=== PATIENT | male | born 1955 | race Caucasian/White ===

== ENCOUNTER 2017-10-25 11:21 | Inpatient (IN) ==
--- NOTE | 2017-10-25 11:28 | Emergency Department Note ---
Disposition Clinical Impression: Encephalomalacia, Hypertensive emergency, Enlarged lymph node CVA (cerebral vascular accident) Qualifiers: CVA mechanism: other Qualified Code(s): I63.8 - Other cerebral infarction Carotid stenosis Qualifiers: Laterality: left Qualified Code(s): I65.22 - Occlusion and stenosis of left carotid artery Disposition: Admitted As Inpatient Condition: Serious General Adult HPI - General Stated complaint: Poss Stroke Nursing Notes Reviewed: Yes Vital Signs Reviewed: Yes - History of Present Illness HPI Narrative: 62-year-old male presents emergency department with concern for stroke. [facility] has left-sided facial droop and left upper extremity weakness according to them. There is no known last known well at this time. Patient has history of brain hemorrhage. He has history of aneurysms. Patient reportedly had a systolic blood pressure in the 200s. Also, had a seizure for EMS came. Currently taking Keppra. - Related Data Home Medications Medication Instructions Recorded Confirmed Aspirin 325 mg PO DAILY PRN 10/25/17 10/25/17 Allergies Allergy/AdvReac Type Severity Reaction Status Date / Time No Known Allergies Allergy Verified 10/25/17 13:29 All systems ED: reviewed and negative except as stated. Review of Systems: As Per HPI Constitutional: Denies: fever Cardiovascular: Denies: chest pain Respiratory: Denies: dyspnea Gastrointestinal: Denies: abdominal pain, nausea, vomiting Genitourinary: Denies: urgency Musculoskeletal: Denies: back pain Neurological: Reports: weakness, other (Seizure). Denies: headache, numbness, paresthesias Physical Exam - Head Head exam: normocephalic - Eye Eye exam: Present: EOMI - ENT ENT exam: normal oropharynx - Neck Neck exam: Present: trachea midline - Chest Chest inspection: Present: symmetric chest wall rise - Respiratory Respiratory exam: Present: normal lung sounds bilaterally - Cardiovascular Cardiovascular exam: Present: regular rate, normal rhythm, normal heart sounds - Abdominal Exam Abdominal exam: Present: soft, Non-Tender. Absent: distention, guarding, rebound, rigidity - Extremities Exam Extremities exam: Present: normal capillary refill - Neurological Exam Neurological exam: Present: alert, other (Oriented to person, but not place or time. Left-sided facial droop, left upper extremity weakness 4 out of 5, left upper extremity drift slightly to the bed,) - Psychiatric Psychiatric exam: Present: normal affect, normal mood - Skin Skin exam: Present: warm, dry, intact Course Vital Signs Temperature 98.7 F 10/25/17 11:30 Pulse Rate 80 10/25/17 11:30 Respiratory Rate 16 10/25/17 11:30 Blood Pressure 199/104 10/25/17 11:30 O2 Sat by Pulse Oximetry 99 10/25/17 11:30 Temperature 97.4 F L 10/25/17 15:05 Pulse Rate 76 10/25/17 15:17 Respiratory Rate 20 10/25/17 15:17 Blood Pressure 218/100 10/25/17 15:17 O2 Sat by Pulse Oximetry 98 10/25/17 15:05 Oxygen Delivery Oxygen Delivery Nasal Cannula Medical Decision Making - MDM Narrative Medical decision making narrative: 62-year-old male presents emergency department with concern for stroke. Patient has no known last known well, history of brain bleed, history of aneurysm, and has improving symptoms at this time. Patient is precluded from TPA. Patient currently has NIH of 6. He has left-sided facial droop, left upper extremity weakness, abnormal finger to nose, pronator drift. We will obtain CT of the head. Plan for admission. Chest x-ray did not reveal any [address] revealed no intracranial hemorrhage, but extensive subacute to chronic appearing right frontal and chronic left parietal lobe infarcts with periventricular small vessel ischemic changes. Prominent mediastinal lymph nodes were also identified on CT. Recommendations were for CT of chest. These should be followed up on. Hemoglobin is 11.3. Creatinine is 1.28. Patient's urinalysis does not reveal any evidence of infection. Patient was given aspirin. I have consulted neurology. Dr. Elizabeth requested head CTA as well as neck CTA. This revealed moderate stenosis of the distal common carotid artery. Patient's systolic blood pressure was in the 200s. In the setting of stroke, so hypertensive emergency. Patient given 10 mg IV hydralazine. Patient admitted to the hospitalist for further evaluation and management for stroke and hypertensive emergency. Chest X-Ray 10/25/17 11:29 IMPRESSION: No acute cardiopulmonary disease D/ / David Wilkes MD / David Wilkes MD Interpreting Provider: David Wilkes MD Head CT 10/25/17 11:29 IMPRESSION: 1. No intracranial hemorrhage. No definite acute infarct. 2. Subacute to chronic appearing right frontal, and chronic left parietal lobe infarcts. 3. Extensive periventricular small vessel ischemic changes, which are most likely old. 4. Status post intracranial endovascular aneurysm repair. Results of this examination were verbally communicated to Dr. Tong at 12:46 p.m. on 10/25/2017. D/ / 10/25/2017 13:47:51 David Wilkes MD / asaf Interpreting Provider: David Wilkes MD Head CTA 10/25/17 13:05 IMPRESSION: 1. Sequelae of coil embolization in the region of the anterior communicating artery and left MCA bifurcation. 2. No cerebral aneurysm identified. 3. No major branch occlusion or significant stenosis identified within the [place]. 4. Moderate stenosis of the distal left common carotid artery. 5. Prominent mediastinal lymph nodes measuring up to 1.3 cm. This is a nonspecific finding. Consider CT of the chest with contrast to assess for further adenopathy. D/ / 10/25/2017 14:53:40 Ted Coppola MD / asaf Interpreting Provider: Ted Coppola MD Neck CTA 10/25/17 13:05 IMPRESSION: 1. Sequelae of coil embolization in the region of the anterior communicating artery and left MCA bifurcation. 2. No cerebral aneurysm identified. 3. No major branch occlusion or significant stenosis identified within the [place]. 4. Moderate stenosis of the distal left common carotid artery. 5. Prominent mediastinal lymph nodes measuring up to 1.3 cm. This is a nonspecific finding. Consider CT of the chest with contrast to assess for further adenopathy. D/ / 10/25/2017 14:53:40 Ted Coppola MD / asaf Interpreting Provider: Ted Coppola MD Vital Signs Temperature 98.7 F 10/25/17 11:30 Pulse Rate 80 10/25/17 11:30 Respiratory Rate 16 10/25/17 11:30 Blood Pressure 199/104 10/25/17 11:30 O2 Sat by Pulse Oximetry 99 10/25/17 11:30 Temperature 97.4 F L 10/25/17 15:05 Pulse Rate 76 10/25/17 15:17 Respiratory Rate 20 10/25/17 15:17 Blood Pressure 218/100 10/25/17 15:17 O2 Sat by Pulse Oximetry 98 10/25/17 15:05 Oxygen Delivery Oxygen Delivery Nasal Cannula - Lab Data Result diagrams: 10/25/17 12:00 10/25/17 11:59 Lab Results 10/25/17 10/25/17 10/25/17 Range/Units 11:59 12:00 12:00 WBC 8.5 (4.3-11.1) K/mcL RBC 3.43 L (4.19-5.50) M/mcL Hgb 11.3 L (12.9-16.9) g/dL Hct 32.6 L (37.5-50.1) % MCV 95.0 (83.0-100.0) fL MCH 32.9 (28.0-33.3) pg MCHC 34.7 (31.6-35.5) g/dL RDW 11.9 (11.5-14.5) % Plt Count 288 (140-400) K/mcL MPV 9.1 L (9.4-12.4) fL Immature Gran % 0.5 (0-4) % Seg Neutrophils % 54.2 % Lymphocytes % 24.1 % Monocytes % 15.2 % Eosinophils % 5.5 % Basophils % 0.5 % Neutrophils # 4.6 (1.6-8.9) K/mcL Lymphocytes # 2.1 (0.6-4.6) K/mcL Monocytes # 1.3 (0.0-1.3) K/mcL Eosinophils # 0.5 (0.0-0.6) K/mcL Basophils # 0.0 (0.0-0.2) K/mcL PT 10.6 (9.4-12.1) Seconds INR 0.9 APTT 33.1 (26.0-36.0) Seconds Sodium 131 L (136-145) mEq/L Potassium 5.1 (3.5-5.1) mEq/L Chloride 102 (98-107) mEq/L Carbon Dioxide 25 (23-29) mEq/L BUN 24 H (8-23) mg/dL Creatinine 1.28 (0.70-1.30) mg/dL Est GFR ( Amer) > 60 (> 60) Est GFR (Non-Af Amer) 57 L (> 60) BUN/Creatinine Ratio 19 (6-26) Glucose 96 (70-105) mg/dL Calculated Osmolality 276 L (280-300) Calcium 8.9 (8.6-10.3) mg/dL Troponin I < 0.03 (< 0.04) ng/mL Urine Color (Yellow) Urine Clarity (Clear) Urine pH (5.0-8.0) pH Units Ur Specific [place] (1.010-1.025) Urine Protein (Neg-Trace) mg/dL Urine Glucose (UA) (Normal) mg/dL Urine Ketones (Negative) mg/dL Urine Blood (Negative) Urine Nitrite (Negative) Urine Bilirubin (Negative) Urine Urobilinogen (Normal) mg/dL Ur Leukocyte Esterase (Negative) Urine Microscopic RBC (0-3) per hpf Urine Microscopic WBC (0-3) per hpf Ur Squamous Epith Cells (None-Few) per lpf Urine Bacteria (None-Few) per hpf Hyaline Casts (None-Few) per lpf Ur Culture Indicated? (NO) Ethyl Alcohol < 10 (Less than 10) mg/dL 10/25/17 Range/Units 13:05 WBC (4.3-11.1) K/mcL RBC (4.19-5.50) M/mcL Hgb (12.9-16.9) g/dL Hct (37.5-50.1) % MCV (83.0-100.0) fL MCH (28.0-33.3) pg MCHC (31.6-35.5) g/dL RDW (11.5-14.5) % Plt Count (140-400) K/mcL MPV (9.4-12.4) fL Immature Gran % (0-4) % Seg Neutrophils % % Lymphocytes % % Monocytes % % Eosinophils % % Basophils % % Neutrophils # (1.6-8.9) K/mcL Lymphocytes # (0.6-4.6) K/mcL Monocytes # (0.0-1.3) K/mcL Eosinophils # (0.0-0.6) K/mcL Basophils # (0.0-0.2) K/mcL PT (9.4-12.1) Seconds INR APTT (26.0-36.0) Seconds Sodium (136-145) mEq/L Potassium (3.5-5.1) mEq/L Chloride (98-107) mEq/L Carbon Dioxide (23-29) mEq/L BUN (8-23) mg/dL Creatinine (0.70-1.30) mg/dL Est GFR ( Amer) (> 60) Est GFR (Non-Af Amer) (> 60) BUN/Creatinine Ratio (6-26) Glucose (70-105) mg/dL Calculated Osmolality (280-300) Calcium (8.6-10.3) mg/dL Troponin I (< 0.04) ng/mL Urine Color Yellow (Yellow) Urine Clarity Clear (Clear) Urine pH 7.5 (5.0-8.0) pH Units Ur Specific [place] 1.010 (1.010-1.025) Urine Protein >=300 H (Neg-Trace) mg/dL Urine Glucose (UA) Normal (Normal) mg/dL Urine Ketones Negative (Negative) mg/dL Urine Blood Trace H (Negative) Urine Nitrite Negative (Negative) Urine Bilirubin Negative (Negative) Urine Urobilinogen Normal (Normal) mg/dL Ur Leukocyte Esterase Negative (Negative) Urine Microscopic RBC 0-3 (0-3) per hpf Urine Microscopic WBC 0-3 (0-3) per hpf Ur Squamous Epith Cells Many H (None-Few) per lpf Urine Bacteria None Seen (None-Few) per hpf Hyaline Casts None Seen (None-Few) per lpf Ur Culture Indicated? NO (NO) Ethyl Alcohol (Less than 10) mg/dL - EKG Data EKG #1 EKG attestation: Yes I reviewed and interpreted this EKG. EKG results narrative: 11:40 In trigger rate 75 bpm, [place] interval 182 ms, QRS duration 82 ms, QT 386, QTC 450 ms, normal axis. Sinus rhythm with a ventricular rate of 75 beats for minute. No ischemic ST changes on this EKG. NIH Stroke Scale - Level of Consciousness LOC: Alert - LOC Questions LOC Questions: Answers one correctly - LOC Commands LOC Commands: Performs both correctly - Best Gaze Best Gaze: Normal - Visual Visual: No visual loss - Facial Palsy Facial Palsy: Partial, total, or near-total paralysis of lower face - Motor Arms Motor Arm-Left: Drift, does NOT hit bed Motor Arm-Right: No drift for 10 seconds - Motor Legs Motor Leg-Left: No drift for 5 seconds Motor Leg-Right: No drift for 5 seconds - Limb Ataxia Limb Ataxia: Present in TWO limbs - Sensory Sensory: Normal - Best Language Best Language: No aphasia - Dysarthria Dysarthria: Normal - Extinction and Inattention Extinction and Inattention: Normal - NIHSS Total Score NIHSS Total Score: 6
--- NOTE | 2017-10-25 11:46 | Emergency Department Note ---
Disposition Clinical Impression: Hypertensive urgency, CVA (cerebral vascular accident), Encephalomalacia Disposition: Admitted As Inpatient Condition: Serious Forms: ED Satisfaction Letter General Adult HPI - General Chief complaint: ED Neuro Symptoms/Deficit Stated complaint: Poss Stroke Source: EMS Limitations: altered mental status - History of Present Illness Pain Scale: 0 - Related Data Allergies Allergy/AdvReac Type Severity Reaction Status Date / Time No Known Allergies Allergy Verified 10/25/17 11:30 Past Medical History - Past Medical History Medical history: Reports: hypertension Psychiatric history: Reports: other - Social History Smoking Status: Current some day smoker Alcohol use: Reports: occasionally Drug use: Reports: none Physical Exam - General Limitations: altered mental status General appearance: alert Course Vital Signs Temperature 98.7 F 10/25/17 11:30 Pulse Rate 80 10/25/17 11:30 Respiratory Rate 16 10/25/17 11:30 Blood Pressure 199/104 10/25/17 11:30 O2 Sat by Pulse Oximetry 99 10/25/17 11:30 Temperature 98.7 F 10/25/17 11:30 Pulse Rate 80 10/25/17 11:30 Respiratory Rate 16 10/25/17 11:30 Blood Pressure 199/104 10/25/17 11:30 O2 Sat by Pulse Oximetry 100 10/25/17 11:40 Oxygen Delivery Oxygen Delivery Nasal Cannula Medical Decision Making - Lab Data Result diagrams: 10/25/17 12:00 10/25/17 11:59 Lab Results 10/25/17 10/25/17 10/25/17 Range/Units 11:59 12:00 12:00 WBC 8.5 (4.3-11.1) K/mcL RBC 3.43 L (4.19-5.50) M/mcL Hgb 11.3 L (12.9-16.9) g/dL Hct 32.6 L (37.5-50.1) % MCV 95.0 (83.0-100.0) fL MCH 32.9 (28.0-33.3) pg MCHC 34.7 (31.6-35.5) g/dL RDW 11.9 (11.5-14.5) % Plt Count 288 (140-400) K/mcL MPV 9.1 L (9.4-12.4) fL Immature Gran % 0.5 (0-4) % Seg Neutrophils % 54.2 % Lymphocytes % 24.1 % Monocytes % 15.2 % Eosinophils % 5.5 % Basophils % 0.5 % Neutrophils # 4.6 (1.6-8.9) K/mcL Lymphocytes # 2.1 (0.6-4.6) K/mcL Monocytes # 1.3 (0.0-1.3) K/mcL Eosinophils # 0.5 (0.0-0.6) K/mcL Basophils # 0.0 (0.0-0.2) K/mcL PT 10.6 (9.4-12.1) Seconds INR 0.9 APTT 33.1 (26.0-36.0) Seconds Sodium 131 L (136-145) mEq/L Potassium 5.1 (3.5-5.1) mEq/L Chloride 102 (98-107) mEq/L Carbon Dioxide 25 (23-29) mEq/L BUN 24 H (8-23) mg/dL Creatinine 1.28 (0.70-1.30) mg/dL Est GFR ( Amer) > 60 (> 60) Est GFR (Non-Af Amer) 57 L (> 60) BUN/Creatinine Ratio 19 (6-26) Glucose 96 (70-105) mg/dL Calculated Osmolality 276 L (280-300) Calcium 8.9 (8.6-10.3) mg/dL Troponin I < 0.03 (< 0.04) ng/mL Ethyl Alcohol < 10 (Less than 10) mg/dL Critical Care Time Critical Care Time: Yes Total Critical Care Time: 40 Attestation: crtical care time of 40 MIN spent in med management of CVA, HTN control, neuro consult Attestation Statement - Attestation Attestation: I examined this patient and my medical decision-making was reviewed with the Resident Physician. I agree with the documented findings, disposition and treatment plan as described except to the extent set forth below. 62-year-old male presented to the emergency room for concerns for stroke. Patient lives at the [facility]. Patient has a history of a previous head bleed. Patient apparently was slow to respond this morning and had left-sided weakness. We do not have a exact time of her known last well time. Patient seems to be improving at this time. His left-sided hemiparesis has improved. He still has a left facial droop. We will do a CT scan of the head to rule out any stroke or intracranial bleed. His blood pressure is elevated. We will watch that at this time. Patient probably had a seizure onset as well as elevated blood pressure and a history of intracranial bleed excludes him from any TPA as well as the fact as his symptoms are improving. Also, we do not have a headache last known well time that can be officially documented with good dennise. pt will need to be admitted, HTN control with IV hydralazine. consult w/ neuro. he recommends CTA head neck. admit critical care time of 40 min spent CVA eval, neuro consult, and HTN control.
[2017-10-25 12:12] LABS: Basophils % 0.5 %; Eosinophils # 0.5 K/mcL (0.0-0.6); Eosinophils % 5.5 %; Hematocrit 32.6 % (37.5-50.1); Hemoglobin 11.3 g/dL (12.9-16.9); Immature Granulocytes % 0.5 % (0-4); Lymphocytes # 2.1 K/mcL (0.6-4.6); Lymphocytes % 24.1 %; Mean Corpuscular HGB Conc 34.7 g/dL (31.6-35.5); Mean Corpuscular Hemoglobin 32.9 pg (28.0-33.3); Mean Platelet Volume 9.1 fL (9.4-12.4); Monocytes # 1.3 K/mcL (0.0-1.3); Monocytes % 15.2 %; Neutrophils # 4.6 K/mcL (1.6-8.9); Platelet Count 288 K/mcL (140-400); Red Blood Count 3.43 M/mcL (4.19-5.50); Red Cell Distribution Width 11.9 % (11.5-14.5); Segmented Neutrophils % 54.2 %
[2017-10-25 12:19] LABS: INR 0.9; Prothrombin Time 10.6 Seconds (9.4-12.1)
[2017-10-25 12:21] LABS: Activated Partial Thrombo Time 33.1 Seconds (26.0-36.0)
[2017-10-25 12:33] LABS: BUN/Creatinine Ratio 19 (6-26); Blood Urea Nitrogen 24 mg/dL (8-23); Calcium 8.9 mg/dL (8.6-10.3); Carbon Dioxide 25 mEq/L (23-29); Chloride 102 mEq/L (98-107); Ethanol < 10 mg/dL (Less than 10); Glucose 96 mg/dL (70-105); Osmolality,Calculated 276 (280-300); Potassium 5.1 mEq/L (3.5-5.1); Sodium 131 mEq/L (136-145); eGFR For African Americans > 60 (> 60); eGFR For Non-African Americans 57 (> 60)
[2017-10-25 12:34] LABS: Troponin I < 0.03 ng/mL (< 0.04)
[2017-10-25] MEDS ORDERED: Aspirin 325 MG TABLET PO ONE (12:48)
[2017-10-25] MEDS ORDERED: Nicotine 14 MG PATCH.TD24 TD STA (12:53)
[2017-10-25] MEDS ORDERED: Isovue-370 500 ML INFUS..BTL IV ONE (13:05)
[2017-10-25 13:22] LABS: Bilirubin,Urine Negative (Negative); Blood,Urine Trace (Negative); Clarity,Urine Clear (Clear); Color,Urine Yellow (Yellow); Glucose,Urine (UA) Normal (Normal); Ketones,Urine Negative (Negative); Leukocyte Esterase,Urine Negative (Negative); Nitrite,Urine Negative (Negative); PH,Urine 7.5 pH Units (5.0-8.0); Protein,Urine >=300 mg/dL (Neg-Trace); Urobilinogen,Urine Normal (Normal)
[2017-10-25 13:23] LABS: Bacteria,Urine None Seen per hpf (None-Few); Hyaline Casts,Urine None Seen per lpf (None-Few); RBC,Urine 0-3 per hpf (0-3); Squamous Epithelial Cell,Urine Many per lpf (None-Few); WBC,Urine 0-3 per hpf (0-3)
[2017-10-25] MEDS ORDERED: Naloxone 0.4 MG/ML INJ IVP PRN (15:10)
[2017-10-25] MEDS ORDERED: hydrALAZINE 25 MG TABLET PO PRN (15:20)
[2017-10-25] MEDS ORDERED: amLODIPine 5 MG TABLET PO SCH (15:30)
--- NOTE | 2017-10-25 16:39 | Neurology - Consult Note ---
Date of Encounter: 10/25/17 Time of Encounter: 16:33 Assessment and Plan (1) Hypertensive emergency Current Visit: Yes Status: Acute Based on his presentation and malignant hypertension at this time it is reasonable to suspect he may have sustained an acute right hemispheric infarction or perhaps extension of the previous right hemispheric infarction. There is no evidence of acute hemorrhage. There is no evidence of mass effect. CTA scans reveal no evidence of intracranial thrombosis or impending occlusion of the common carotids are internal carotid arteries. History is scant therefore it is difficult to know to what extent his risk factors were being managed previously. However I would recommend allowing for permissive hypertension for the next 24 hours or so, I would not want to drop him much below 180-190 systolic at this time I would recommend 81 mg daily. At this juncture I am not certain that additional testing is necessary. I would certainly avoid hypotension over the first 24-48 hours. I would also avoid using glucose and IVs. Recommend PT/OT and speech therapy is necessary. Aggressive management of his blood pressure after discharge is paramount. His history is suggestive of ethanol abuse. Lifestyle changes are noted. I will reassess him in the morning. Because information regarding this gentleman is limited I am not certain whether not whatever was used to obliterate the aneurysm is MRI safe. Therefore will defer it. If his deficits are not stable tomorrow or he is worsened I would anticipate repeating a CT scan of the head tomorrow. Continue stroke protocol nursing orders statins are also indicated. History of Present Illness HPI: The chart was reviewed, the patient was seen and examined independently, and alongside Dr. Davila. Mr. Blood is a 62 year old male with a prior history of ethanol abuse, alcoholic cirrhosis, previous right hemispheric infarct, prior cerebral aneurysm. Who is currently being seen for neurologic consultation at the request of the hospitalist secondary to left-sided weakness as well as left facial droop. This gentleman is a poor historian details regarding his baseline history past medical history and details leading up to his admission are somewhat scant. In any regard he lives at the [facility]. And he presents with systolic blood pressure in the 200s. It is questionable whether not he may have had a seizure. He is awake and alert however not able to give a lucid history or any meaningful information. CBC with differential and reveals a normal white blood cell count is 8.5. Hemoglobin is slightly low at 11.3. Hematocrit is low at 32.6. MCV is 95. Platelet count is 288,000. Differential is normal. Coag panel was normal. Electrolytes are essentially normal. You when is slightly elevated at 24. Creatinine is normal at 1.28. Troponins were less than 0.03. CT scan completed in the ED reveals an area of previous infarction in the right frontal lobe as well as a fairly large lacunar infarct in the right caudate nucleus and adjacent to the right anterior 1. Is also evidence of other scattered deep white matter lacunar infarcts. 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 CTA scans of the head and neck were negative for evidence of intracranial thrombosis or severe stenosis of the internal carotid arteries. 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 It appears as though he may have been taking aspirin 325 mg daily. Past Med Surg Social Fam HX - Past Medical History Medical history: cirrhosis, COPD, dementia, hypertension, seizures Additional medical history: HEP C, CIrrhosis, Monocytosis, Cerebral Aneurysm, COPD, Seizures, Psychiatric history: other - Social History Smoking Status: Current some day smoker Alcohol use: heavy Drug use: none Medications and Allergies Aspirin 325 mg PO DAILY PRN 10/25/17 [History] 3 Allergy/AdvReac Type Severity Reaction Status Date / Time No Known Allergies Allergy Verified 10/25/17 13:29 ROS unobtainable: due to mental status All Systems: The remainder of the systems were reviewed and are negative Physical Examination - Vital Signs Vital Signs: Initial Vital Signs Temp Pulse Resp BP Pulse Ox 98.7 F 80 16 199/104 99 10/25/17 11:30 10/25/17 11:30 10/25/17 11:30 10/25/17 11:30 10/25/17 11:30 - Neurologic Sensorimotor examination: other (Sensory examination is also difficult to assess in a confused patient.) Detailed motor examination: other (Was difficult to do a traditional neurologic examination on this patient because of lack of tenderness. However there does seem to be a general weakness of the left upper and left lower extremities in comparison to the right. He seems to have less tone of the left upper and left lower extremities. However he can certainly raise to gravity bilaterally. The left tibialis anterior was 3/5 the right tibialis anterior is 4/5. There were no involuntary movements identified.) Reflex and gait examination: other (Patella reflexes were 2 symmetrically.) Mental Status Examination: awake (Although patient is awake he does make eye contact however he is not very attentive. He answers some questions with one- word responses but he did not give a complete answers and he is not able to give a meaningful history of present illness. According to primary medical history he does have a baseline dementia.) Cranial nerve examination: PERRL, EOMI, no facial asymmetry is present Results - Laboratory Findings CBC and BMP: 10/25/17 12:00 10/25/17 11:59 Abnormal lab findings: Abnormal lab results RBC 3.43 M/mcL (4.19-5.50) L 10/25/17 12:00 Hgb 11.3 g/dL (12.9-16.9) L 10/25/17 12:00 Hct 32.6 % (37.5-50.1) L 10/25/17 12:00 MPV 9.1 fL (9.4-12.4) L 10/25/17 12:00 Sodium 131 mEq/L (136-145) L 10/25/17 11:59 BUN 24 mg/dL (8-23) H 10/25/17 11:59 Est GFR (Non-Af Amer) 57 (> 60) L 10/25/17 11:59 Calculated Osmolality 276 (280-300) L 10/25/17 11:59 Urine Protein >=300 mg/dL (Neg-Trace) H 10/25/17 13:05 Urine Blood Trace (Negative) H 10/25/17 13:05 Ur Squamous Epith Cells Many per lpf (None-Few) H 10/25/17 13:05 Consult Discharge Plan - Plan Referrals: Jer Tai [Primary Care Provider] -
--- NOTE | 2017-10-25 17:30 | Internal Med History&Physical ---
Date of Encounter: 10/26/17 Time of Encounter: 17:00 Internal Medicine - H&P: HPI Chief complaint: left sided facial droop and left sided weakness today at the [place] History of present illness: Mr. Blood is a 62 year old male with pmh of COPD, dementia, self reported alcohol abuse, seizures, prior cerebral aneurysm presenting from the [place] after staff noted he had a left facial dropp and a left sided weakness. Patient is unable to provide any meaningful history and says he was sent to the hospital because he drinks too much. His left hemiparesis had reported ly improved by the time he got to the ER but he still had a left sided facial droop, no slurred speech. BP was noted to be elevated at 199/104 on arrival. He received one dose oif aspirin 325mg and had a CT head done. Neuro was also consulted who recommended a CTA head and neck Past Med Surg Social Fam HX - Past Medical History Medical history: cirrhosis, COPD, dementia, hypertension, seizures Additional medical history: HEP C, CIrrhosis, Monocytosis, Cerebral Aneurysm, COPD, Seizures, Psychiatric history: other - Social History Smoking Status: Current some day smoker Alcohol use: heavy Drug use: none Internal Medicine - H&P: Meds Aspirin 325 mg PO DAILY PRN 10/25/17 [History] 3 Allergy/AdvReac Type Severity Reaction Status Date / Time No Known Allergies Allergy Verified 10/25/17 13:29 ROS unobtainable: due to mental status All Systems PM: A 10-system review of systems was performed and is negative for pertinent findings except as documented above in the HPI. - Constitutional Vitals: Temp Pulse Resp BP Pulse Ox 97.4 F L 76 20 218/100 100 10/25/17 15:05 10/25/17 15:17 10/25/17 15:17 10/25/17 15:17 10/25/17 15:42 Exam: Doesn't answer questions appropriately - Head Head exam: Present: atraumatic, normocephalic - Eye Eye exam: Present: PERRL, conjuntiva pink, sclera anicteric Pupils: Present: PERRL - Neck Neck exam general surgery: Present: supple, trachea midline. Absent: lymphadenopathy - Respiratory Respiratory exam: Present: CTAB. Absent: accessory muscle use, rales, rhonchi, wheezes - Cardiovascular Cardiovascular exam: Present: RRR, +S1, +S2. Absent: diastolic murmur, gallop, rubs, systolic murmur - GI/Abdominal GI/Abdominal exam: Present: normal bowel sounds, soft, no peritoneal signs. Absent: distended, tenderness - Extremities Exam Extremities exam: Present: warm, radial pulses palpable and symmetrical. Absent : calf tenderness, cyanotic, pedal edema - Neurological Exam Neurological exam: Present: CN II-XII intact, oriented X3, no focal deficits. Absent: pronater drift, facial droop, speech deficit Additional comments: 4+ /5 strength on left sided, no facial droop noted - Skin Skin exam: Present: dry, intact Internal Med - H&P Results - Labs CBC & Chem 7: 10/26/17 04:32 10/26/17 04:32 - Assessment and plan (1) CVA (cerebral vascular accident) Current Visit: Yes Status: Acute Assessment and plan: Query acute CVA. CT head and CTA head and neck negative so far. Neurology following. Neurology have impression that he may have sustained an acute right hemispheric infarction or perhaps extension of previous right hemispheric infarction. Plan to keep BP permissively in the 180s-190s for the next 24hrs. received IV hydralazine in ER. Continue aspirin. Plan to repeat CT head in am if patient deteriorates. May not be candidate for MRi head due to reported previous coiling of cerebral aneurysm Qualifiers: CVA mechanism: other Qualified Code(s): I63.8 - Other cerebral infarction (2) Hypertensive emergency Current Visit: Yes Status: Acute Assessment and plan: Hypertensive emergency with likely acute CVA. Received IV hydralzine in ER. Plan to keep BP btw 180-190 systolic for the next 24hrs (3) Alcohol abuse Current Visit: Yes Status: Acute Assessment and plan: PAtient admits to drinking beers daily, will place on CIWA protocol, monitor for withdrawal (4) Proteinuria Current Visit: Yes Status: Acute Assessment and plan: Proteinuria r/o nephrotic syndrome. Obtain urine protein creatinine ratio. Nephrology consult if indicated Qualifiers: Qualified Code(s): R80.9 - Proteinuria, unspecified (5) DVT prophylaxis Current Visit: Yes Status: Acute Assessment and plan: SCds - Time Spent With Patient Total time spent is greater than 50% in coordination of care (as documented) at patient's floor/unit and/or counseling patient:
[2017-10-25] MEDS ORDERED: Thiamine (B-1) 100 MG, Folic Acid 1 MG, MVI, adult with vitamin K 10 ML in 0.9 % Sodi... IVPB SCH (18:00)
--- NOTE | 2017-10-25 18:37 | Electrocardiograph Report ---
[address] [address] Test Date: 2017-10-25 Pat Name: Noe Blood Department: 102 Room: 2NE26 Gender: M Vp Cardiovascular: Patria : 1955 Requested By: David Tong Order Number: [id number] Reading MD: Ifeoma Rascon Measurements Intervals [place] Rate: 75 P: 58 OK: 182 QRS: 13 QRSD: 82 T: 67 QT: 386 QTc: 415 Interpretive Statements SINUS RHYTHM Electronically Signed On 10-25-2017 18:36:01 EDT by Ifeoma Rascon
[2017-10-25] MEDS: Folic Acid 1 MG TABLET PO SCH (18:42)
[2017-10-25] MEDS: Thiamine (B-1) 100 MG TABLET PO SCH (18:43)
[2017-10-25] MEDS: Vitamin B Complex/Vit C/Vit E 1 EACH TABLET PO SCH (18:43)
[2017-10-25] MEDS ORDERED: Perflutren Lipid Microsphere 2 ML VIAL ONE (20:12)
[2017-10-26 09:36] LABS: BUN/Creatinine Ratio 21 (6-26); Blood Urea Nitrogen 28 mg/dL (8-23); Calcium 8.9 mg/dL (8.6-10.3); Carbon Dioxide 23 mEq/L (23-29); Chloride 104 mEq/L (98-107); Glucose 100 mg/dL (70-105); Magnesium 2.2 mg/dL (1.6-2.6); Osmolality,Calculated 282 (280-300); Phosphorous 5.6 mg/dL (2.7-4.5); Potassium 4.6 mEq/L (3.5-5.1); Sodium 133 mEq/L (136-145); eGFR For African Americans > 60 (> 60); eGFR For Non-African Americans 56 (> 60)
[2017-10-26 09:44] LABS: Basophils % 0.2 %; Eosinophils % 0.3 %; Hematocrit 30.5 % (37.5-50.1); Hemoglobin 10.4 g/dL (12.9-16.9); Immature Granulocytes % 0.9 % (0-4); Immature Platelets 2.6 % (1.1-6.1); Lymphocytes # 1.7 K/mcL (0.6-4.6); Lymphocytes % 16.4 %; Mean Corpuscular HGB Conc 34.1 g/dL (31.6-35.5); Mean Corpuscular Volume 93.8 fL (83.0-100.0); Mean Platelet Volume 9.8 fL (9.4-12.4); Monocytes # 1.3 K/mcL (0.0-1.3); Monocytes % 13.2 %; Neutrophils # 6.9 K/mcL (1.6-8.9); Platelet Count 320 K/mcL (140-400); Red Blood Count 3.25 M/mcL (4.19-5.50); Red Cell Distribution Width 12.1 % (11.5-14.5)
[2017-10-26 11:00] LABS: Chol/HDL Ratio 3.6 (0-4.9)
[2017-10-26] MEDS: Aspirin 81 MG TAB.CHEW PO SCH (11:28)
[2017-10-26] MEDS: Thiamine (B-1) 100 MG TABLET PO SCH (11:29)
[2017-10-26] MEDS: Folic Acid 1 MG TABLET PO SCH (11:29)
[2017-10-26] MEDS: Vitamin B Complex/Vit C/Vit E 1 EACH TABLET PO SCH (11:29)
--- NOTE | 2017-10-26 16:27 | Neurology Progress Note ---
Date of Encounter: 10/26/17 Time of Encounter: 16:24 Assessment and Plan (1) Hypertensive emergency Current Visit: Yes Status: Acute His neurological status has improved back to baseline and left sided weakness resolved. Strength is almost 5/5 at this time and his speech is fluent. Therefore it appears that likely the focal neurological deficits are related to hypertensive urgency. A new cerebral infarct will be unlikely to be with such rapid improvement. Will at this continue him on Aspirin 81mg daily. Continue on statin therapy. Risk factor modification especially HTN management is recommended. Will sign off at this moment. Please call if any questions. Subjective Principal diagnosis: left sided weakness Interval history: Patient seen and examined. He is upset and aggravated due to being wired and the devices are beeping. He states that he wants to go home. His left sided weakness has resolved. He is able to walk without difficulty. CTA of head and neck showed no major vessel flow limiting stenosis. Reviewed the CT of head and the focal low intensity involving the right frontal parietal region appears chronic since no midline shift and no mass effects seen. Clinically his neurological status back to baseline. Is on Aspirin 81mg daily Objective - Constitutional Vitals: Temp Pulse Resp BP Pulse Ox 98.1 F 72 16 162/86 98 10/26/17 13:54 10/26/17 13:54 10/26/17 13:54 10/26/17 13:54 10/26/17 13:54 - Neurological Exam Sensorimotor examination: Present: intact (Grossly intact) Motor Examination: Present: other (d) Motor examination - right side: 5/5: deltoids, biceps, triceps, wrist flexion, wrist extension, assembly supervisor, hip flexors, tibialis Anterior, quadriceps, toe extension (EHL), plantarflexion Motor examination - left side: 5/5: deltoids, biceps, triceps, wrist flexion, wrist extension, hip flexors, assembly supervisor, quadriceps, tibialis Anterior, toe extension (EHL), plantarflexion Reflex and gait examination: other (Patella reflexes were 2 symmetrically.) Reflexes: Biceps: 1+, Triceps: 1+, Brachioradialis: 1+, Patella: 1+, Achilles: 1 + Mental Status Examination: Present: awake, alert, oriented to person, oriented to place, oriented to time, follows commands appropriately, answers questions appropriately, no agnosia Cranial nerve examination: Present: PERRL, EOMI, visual guadarrama intact, corneal reflexes brisk symmetrically, sensory to face intact, mastication intact, no facial asymmetry is present, no dysarthria, hearing is intact symmetrically, soft palate elevates bilaterally upon phonation, gag reflex intact, flexes SCM and trapezius muscles symmetrically with full power, tongue protrudes midline Results - Laboratory Findings CBC and BMP: 10/26/17 04:32 10/26/17 04:32 Abnormal lab findings: Abnormal lab results RBC 3.25 M/mcL (4.19-5.50) L 10/26/17 04:32 Hgb 10.4 g/dL (12.9-16.9) L 10/26/17 04:32 Hct 30.5 % (37.5-50.1) L 10/26/17 04:32 Sodium 133 mEq/L (136-145) L 10/26/17 04:32 BUN 28 mg/dL (8-23) H 10/26/17 04:32 Creatinine 1.31 mg/dL (0.70-1.30) H 10/26/17 04:32 Est GFR (Non-Af Amer) 56 (> 60) L 10/26/17 04:32 Phosphorus 5.6 mg/dL (2.7-4.5) H 10/26/17 04:32 Cholesterol 203 mg/dL (< 200) H 10/26/17 04:32 LDL Cholesterol, Calc 124 mg/dL (0-99) H 10/26/17 04:32 Urine Protein >=300 mg/dL (Neg-Trace) H 10/25/17 13:05 Urine Blood Trace (Negative) H 10/25/17 13:05 Ur Squamous Epith Cells Many per lpf (None-Few) H 10/25/17 13:05 - Diagnostic Findings Additional findings: CTA OF THE HEAD WITHOUT AND WITH CONTRAST; CTA OF THE NECK 10/25/2017 1:55 pm: TECHNIQUE: CTA of the head/brain was performed without and with the administration of intravenous contrast. Multiplanar reformatted images are provided for review. MIP images are provided for review. Dose modulation, iterative reconstruction, and/or weight based adjustment of the mA/kV was utilized to reduce the radiation dose to as low as reasonably achievable.; CTA of the neck was performed with the administration of intravenous contrast. Multiplanar reformatted images are provided for review. MIP images are provided for review. Stenosis of the internal carotid arteries measured using NASCET criteria. Dose modulation, iterative reconstruction, and/or weight based adjustment of the mA/kV was utilized to reduce the radiation dose to as low as reasonably achievable. COMPARISON: Noncontrast CT brain earlier same day. HISTORY: ORDERING SYSTEM PROVIDED HISTORY: stroke 75 ml of ISOVUE FINDINGS: CTA NECK: AORTIC ARCH/ARCH VESSELS: Atherosclerotic calcifications are present within the aortic arch and origins of the great vessels. No significant stenosis of the origins of the great vessels are evident. The subclavian arteries are normal in appearance. CAROTID ARTERIES: There is circumferential calcified atherosclerotic plaque resulting in a moderate stenosis of the distal left common carotid artery. Atherosclerotic plaque extends into the proximal left internal carotid artery without significant stenosis evident based on NASCET criteria. There is no significant stenosis of the right common carotid artery identified. Atherosclerotic plaque is present at the origin of the right internal carotid artery without significant stenosis based on NASCET criteria. VERTEBRAL ARTERIES: The vertebral arteries are normal in appearance. There is no significant stenosis or dissection. No pseudoaneurysm is identified. SOFT TISSUES: There is enlarged right peritracheal lymph node measuring 1.3 cm in short axis. Prominent though not pathologically enlarged additional mediastinal lymph nodes are noted. There is no cervical lymphadenopathy identified. Centrilobular emphysematous changes are present within the upper lobes. The lung apices are otherwise clear. BONES: No lytic or blastic osseous lesions are identified. CTA HEAD: ANTERIOR CIRCULATION: The sequelae of prior coil embolization in the region of the anterior communicating artery is noted. There is no residual aneurysm identified. The intracranial segments of the internal carotid arteries are normal without significant stenosis or aneurysm identified. The middle cerebral arteries are normal in appearance. There is no significant stenosis or aneurysm identified. Sequelae of prior embolization in the region of the left MCA bifurcation is noted. No residual aneurysm is identified. POSTERIOR CIRCULATION: The distal vertebral arteries are normal in appearance. The basilar artery is normal in appearance. There is no significant stenosis or aneurysm identified. The posterior cerebral arteries are normal in appearance without significant stenosis or aneurysm identified. BRAIN: There is no abnormal enhancement or vascular malformation identified. Encephalomalacia within the right frontal lobe is noted. CT/CT angio head IMPRESSION: 1. Sequelae of coil embolization in the region of the anterior communicating artery and left MCA bifurcation. 2. No cerebral aneurysm identified. 3. No major branch occlusion or significant stenosis identified within the [place]. 4. Moderate stenosis of the distal left common carotid artery. 5. Prominent mediastinal lymph nodes measuring up to 1.3 cm. This is a nonspecific finding. Consider CT of the chest with contrast to assess for further adenopathy. D/ / 10/25/2017 14:53:40 Ted Coppola MD / asaf Interpreting Provider: Ted Coppola MD Consult Discharge Plan - Plan Referrals: Jer Tai [Primary Care Provider] -
--- NOTE | 2017-10-26 16:52 | Internal Med Progress Note ---
<Dianne Nunez N - Last Filed: 10/26/17 16:49> Date of Encounter: 10/26/17 Time of Encounter: 09:49 - Assessment and plan (1) CVA (cerebral vascular accident) Current Visit: Yes Status: Acute Assessment and plan: Patient has a history of CVA. Head CT performed last night showed no intracranial hemorrhage and no definite acute infarct. Neurology evaluated the patient upon presentation to the ED, and per their reevaluation today, the patient is back to his baseline. He does demonstrate some minimal left-sided weakness and facial droop, but otherwise appears to be grossly intact neurologically. He is unable to tell me the day of the week or month of the year , but is oriented to self and location. Suspect that his symptoms are due to hypertensive urgency and chronic ischemic changes. Will continue atorvastatin 40mg and aspirin 81mg. Plan to continue monitoring this patient for signs of worsening neurologic function. Qualifiers: CVA mechanism: other Qualified Code(s): I63.8 - Other cerebral infarction (2) Hypertensive emergency Current Visit: Yes Status: Acute Assessment and plan: Patient's BP was 199/104 at time of presentation to the ED. His most recent BP was improved, at 162/86. He is currently on amlodipine 5mg, which we will continue. He has a history of alcohol abuse, which is likely contributing to his elevated BP. Will continue to monitor and manage as appropriate. (3) Alcohol abuse Current Visit: Yes Status: Acute Assessment and plan: Patient has a long history of alcohol abuse. He is currently on CIWA protocol and is receiving thiamine and folic acid supplementation, as well as general B- vitamin supplementation. Will continue current management and consider nutrition consult for diet education prior to discharge. (4) Proteinuria Current Visit: Yes Status: Acute Assessment and plan: Patient had proteinuria, with protein >=300. Urine protein:creatinine ratio studies have been ordered and are in progress. Plan to consult nephrology if urine studies show abnormalities. Qualifiers: Proteinuria type: unspecified Qualified Code(s): R80.9 - Proteinuria, unspecified (5) DVT prophylaxis Current Visit: Yes Status: Acute Assessment and plan: SCDs - Time Spent With Patient Total time spent is greater than 50% in coordination of care (as documented) at patient's floor/unit and/or counseling patient: - Subjective Interval history: Mr. Blood is a 62-year old male who was transferred to the ED from the [place] due to new-onset left-sided facial droop and weakness. He has a history of CVA and alcohol abuse, reportedly with some dementia. He was evaluated by neurology last night, and upon repeat evaluation today, has apparently returned to his baseline strength. Upon exam today, he appears slightly confused, and stating that he is in the hospital because "I had a stroke, I guess". He complains of ongoing headache over the right side of the top of his head, which he rates 5/ 10 in intensity. He denies changes in vision. He reports some nausea associated with initial symptoms, but states that it is now resolved. He is not oriented to time, stating that today is Sunday and the current month is April. He expresses nonspecific concern for his mother, as she is "getting on in years", but denies any specific concerns. - Constitutional Vitals: Temp Pulse Resp BP Pulse Ox 98.1 F 72 16 162/86 98 10/26/17 13:54 10/26/17 13:54 10/26/17 13:54 10/26/17 13:54 10/26/17 13:54 Exam: * General: Patient is awake and oriented to person and place. He answers questions appropriately. He appears to be in mild distress secondary to confusion. * HEENT: Atraumatic and normocephalic. * Cardiovascular: Regular rate and rhythm. No murmurs, rubs, or gallops. * Respiratory: Lungs CTA bilaterally. No accessory muscle use. * Gastrointestinal: Active bowel sounds present. Abdomen soft and nontender. * Extremities: No clubbing, cyanosis, or edema present. * Neurologic: CN II-XII grossly intact. Facial droop visible when patient asked to smile. EOM are intact, but he does accomodate. Upper extremity strength is 5/ 5 bilaterally, with minimal weakness in finger book critic on the left. Patient moves toes on commands. He moves all extremities spontaneously. Internal Medicine: Result - Labs CBC & Chem 7: 10/26/17 04:32 10/26/17 04:32 Labs: Short CBC 10/26/17 Range/Units 04:32 WBC 10.0 (4.3-11.1) K/mcL Hgb 10.4 L (12.9-16.9) g/dL Hct 30.5 L (37.5-50.1) % Plt Count 320 (140-400) K/mcL Neutrophils # 6.9 (1.6-8.9) K/mcL BMP 10/26/17 04:32 Sodium 133 L Potassium 4.6 Chloride 104 Carbon Dioxide 23 BUN 28 H Creatinine 1.31 H Glucose 100 Calcium 8.9 - ABG Interpretation ABG results: PT/INR, D-dimer PT 10.6 Seconds (9.4-12.1) 10/25/17 12:00 Consult Discharge Plan - Plan Referrals: Jer Tai [Primary Care Provider] - <Basilio Patino - Last Filed: 10/26/17 19:24> Date of Encounter: 10/26/17 - Assessment and plan (1) Hypertensive emergency Current Visit: Yes Status: Acute (2) CVA (cerebral vascular accident) Current Visit: Yes Status: Acute Qualifiers: CVA mechanism: other Qualified Code(s): I63.8 - Other cerebral infarction (3) Alcohol abuse Current Visit: Yes Status: Acute (4) Proteinuria Current Visit: Yes Status: Acute Qualifiers: Proteinuria type: unspecified Qualified Code(s): R80.9 - Proteinuria, unspecified (5) DVT prophylaxis Current Visit: Yes Status: Acute (6) Encephalomalacia Current Visit: Yes Status: Chronic (7) Acute metabolic encephalopathy Current Visit: Yes Status: Resolved - Time Spent With Patient Total time spent is greater than 50% in coordination of care (as documented) at patient's floor/unit and/or counseling patient: - Constitutional Vitals: Temp Pulse Resp BP Pulse Ox 97.9 F 78 15 117/93 97 10/26/17 16:56 10/26/17 16:56 10/26/17 16:56 10/26/17 16:56 10/26/17 16:56 Internal Medicine: Result - Labs CBC & Chem 7: 10/26/17 04:32 10/26/17 04:32 Labs: Short CBC 10/26/17 Range/Units 04:32 WBC 10.0 (4.3-11.1) K/mcL Hgb 10.4 L (12.9-16.9) g/dL Hct 30.5 L (37.5-50.1) % Plt Count 320 (140-400) K/mcL Neutrophils # 6.9 (1.6-8.9) K/mcL BMP 10/26/17 04:32 Sodium 133 L Potassium 4.6 Chloride 104 Carbon Dioxide 23 BUN 28 H Creatinine 1.31 H Glucose 100 Calcium 8.9 - ABG Interpretation ABG results: PT/INR, D-dimer PT 10.6 Seconds (9.4-12.1) 10/25/17 12:00 - Attending Attestation I examined this patient and my medical decision-making was reviewed with the Resident Physician on 10/26/17. I agree with the documented findings, disposition and treatment plan as described except to the extent set forth below. Mr Blood has been admitted for acute encephalopathy most likely new CVA. He remains moderate to high risk due to potential for worsening clinical status. Mr Blood is in chair. He denies pain. No fever or chills. No cough. Exam alert Comfortable Mucus membranes dry Heart reg No wheeze I/P 1. Acute encephalopathy - resolved 2. prior CVA Further diagnoses and plan as above Echo pending.
[2017-10-27 06:22] LABS: Basophils % 0.5 %; Eosinophils # 0.3 K/mcL (0.0-0.6); Eosinophils % 4.3 %; Hematocrit 31.2 % (37.5-50.1); Hemoglobin 10.6 g/dL (12.9-16.9); Immature Granulocytes % 0.4 % (0-4); Lymphocytes # 1.6 K/mcL (0.6-4.6); Lymphocytes % 19.7 %; Mean Corpuscular Hemoglobin 31.9 pg (28.0-33.3); Mean Platelet Volume 9.3 fL (9.4-12.4); Monocytes # 1.1 K/mcL (0.0-1.3); Monocytes % 14.2 %; Neutrophils # 4.8 K/mcL (1.6-8.9); Platelet Count 252 K/mcL (140-400); Red Blood Count 3.32 M/mcL (4.19-5.50); Red Cell Distribution Width 12.2 % (11.5-14.5); Segmented Neutrophils % 60.9 %
[2017-10-27 06:41] LABS: BUN/Creatinine Ratio 23 (6-26); Blood Urea Nitrogen 32 mg/dL (8-23); Calcium 8.7 mg/dL (8.6-10.3); Carbon Dioxide 24 mEq/L (23-29); Chloride 101 mEq/L (98-107); Glucose 91 mg/dL (70-105); Osmolality,Calculated 276 (280-300); Potassium 4.2 mEq/L (3.5-5.1); Sodium 130 mEq/L (136-145); eGFR For African Americans > 60 (> 60); eGFR For Non-African Americans 51 (> 60)
--- NOTE | 2017-10-27 07:35 | Internal Med Progress Note ---
<Dianne Nunez N - Last Filed: 10/27/17 14:40> Date of Encounter: 10/27/17 Time of Encounter: 07:35 - Assessment and plan (1) Hypertensive emergency Current Visit: Yes Status: Acute Assessment and plan: Patient's BP was 199/104 at time of presentation to the ED. His most recent BP was improved, at 162/86. He is currently on amlodipine 5mg, which we will continue. He has a history of alcohol abuse, which is likely contributing to his elevated BP. Will continue to monitor and manage as appropriate. 10/27 - Nursing staff reported high overnight BP, with measurements of 205/96 and 202/115. As we have not yet been able to reconcile his medications, will start amlodipine 10mg for blood pressure management. Will continue hydralazine for systolic BP >170mmHg and diastolic BP >100mmHg. (2) CVA (cerebral vascular accident) Current Visit: Yes Status: Acute Assessment and plan: Patient has a history of CVA. Head CT performed last night showed no intracranial hemorrhage and no definite acute infarct. Neurology evaluated the patient upon presentation to the ED, and per their reevaluation today, the patient is back to his baseline. He does demonstrate some minimal left-sided weakness and facial droop, but otherwise appears to be grossly intact neurologically. He is unable to tell me the day of the week or month of the year , but is oriented to self and location. Suspect that his symptoms are due to hypertensive urgency and chronic ischemic changes. Will continue atorvastatin 40mg and aspirin 81mg. Plan to continue monitoring this patient for signs of worsening neurologic function. 10/27 - Will continue to monitor patient for signs of CVA. Qualifiers: CVA mechanism: other Qualified Code(s): I63.8 - Other cerebral infarction (3) Alcohol abuse Current Visit: Yes Status: Acute Assessment and plan: Patient has a long history of alcohol abuse. He is currently on CIWA protocol and is receiving thiamine and folic acid supplementation, as well as general B- vitamin supplementation. Will continue current management and consider nutrition consult for diet education prior to discharge. (4) Proteinuria Current Visit: Yes Status: Acute Assessment and plan: Patient had proteinuria, with protein >=300. Urine protein:creatinine ratio studies have been ordered and are in progress. Plan to consult nephrology if urine studies show abnormalities. 10/27 - Urine studies are still pending. Will assess those as results become available. Qualifiers: Proteinuria type: unspecified Qualified Code(s): R80.9 - Proteinuria, unspecified (5) DVT prophylaxis Current Visit: Yes Status: Acute Assessment and plan: SCDs - Time Spent With Patient Total time spent is greater than 50% in coordination of care (as documented) at patient's floor/unit and/or counseling patient: - Subjective Interval history: Mr. Blood is a 62-year old male who was transferred to the ED from the [facility] due to new-onset left-sided facial droop and weakness. He has a history of CVA and alcohol abuse, reportedly with some dementia. He was evaluated by neurology last night, and upon repeat evaluation today, has apparently returned to his baseline strength. Upon exam today, he appears slightly confused, and stating that he is in the hospital because "I had a stroke, I guess". He complains of ongoing headache over the right side of the top of his head, which he rates 5/ 10 in intensity. He denies changes in vision. He reports some nausea associated with initial symptoms, but states that it is now resolved. He is not oriented to time, stating that today is Sunday and the current month is April. He expresses nonspecific concern for his mother, as she is "getting on in years", but denies any specific concerns. 10/27 - Patient complains of persistent headache, which he rates as 8/10. He denies any other complaints at this time. He states the current day to be Sunday , and reports the month to be April. Nursing staff reports trouble reconciling his medications, and his home blood pressure regimen is currently unknown. - Constitutional Vitals: Temp Pulse Resp BP Pulse Ox 98.6 F 83 18 194/93 95 10/27/17 06:25 10/27/17 06:25 10/27/17 06:25 10/27/17 06:25 10/27/17 06:25 Exam: * General: Patient is awake and oriented to person and place. He answers questions appropriately. He appears to be in mild distress secondary to headache. * HEENT: Atraumatic and normocephalic. * Cardiovascular: Regular rate and rhythm. No murmurs, rubs, or gallops. * Respiratory: Lungs CTA bilaterally. No accessory muscle use. * Gastrointestinal: Active bowel sounds present. Abdomen soft and nontender. * Extremities: No clubbing, cyanosis, or edema present. * Neurologic: Patient moves all extremities spontaneously. No apparent focal deficits. Internal Medicine: Result - Labs CBC & Chem 7: 10/27/17 05:50 10/27/17 05:50 Labs: Short CBC 10/26/17 10/27/17 Range/Units 04:32 05:50 WBC 10.0 7.9 (4.3-11.1) K/mcL Hgb 10.4 L 10.6 L (12.9-16.9) g/dL Hct 30.5 L 31.2 L (37.5-50.1) % Plt Count 320 252 (140-400) K/mcL Neutrophils # 6.9 4.8 (1.6-8.9) K/mcL BMP 10/26/17 10/27/17 04:32 05:50 Sodium 133 L 130 L Potassium 4.6 4.2 Chloride 104 101 Carbon Dioxide 23 24 BUN 28 H 32 H Creatinine 1.31 H 1.42 H Glucose 100 91 Calcium 8.9 8.7 - ABG Interpretation ABG results: PT/INR, D-dimer PT 10.6 Seconds (9.4-12.1) 10/25/17 12:00 Consult Discharge Plan - Plan Referrals: Jer Tai [Primary Care Provider] - <Basilio Patino - Last Filed: 10/27/17 18:04> Date of Encounter: 10/27/17 - Assessment and plan (1) CVA (cerebral vascular accident) Current Visit: Yes Status: Acute Qualifiers: CVA mechanism: other Qualified Code(s): I63.8 - Other cerebral infarction (2) Hypertensive emergency Current Visit: Yes Status: Resolved (3) Alcohol abuse Current Visit: Yes Status: Inactive (4) Proteinuria Current Visit: Yes Status: Acute Qualifiers: Proteinuria type: unspecified Qualified Code(s): R80.9 - Proteinuria, unspecified (5) DVT prophylaxis Current Visit: Yes Status: Acute (6) Encephalomalacia Current Visit: Yes Status: Chronic (7) Acute metabolic encephalopathy Current Visit: Yes Status: Resolved (8) Tobacco abuse Current Visit: Yes Status: Chronic - Time Spent With Patient Total time spent is greater than 50% in coordination of care (as documented) at patient's floor/unit and/or counseling patient: - Constitutional Vitals: Temp Pulse Resp BP Pulse Ox 97.7 F 95 19 160/86 96 10/27/17 14:45 10/27/17 14:45 10/27/17 14:45 10/27/17 14:45 10/27/17 14:45 Internal Medicine: Result - Labs CBC & Chem 7: 10/27/17 05:50 10/27/17 05:50 Labs: Short CBC 10/27/17 Range/Units 05:50 WBC 7.9 (4.3-11.1) K/mcL Hgb 10.6 L (12.9-16.9) g/dL Hct 31.2 L (37.5-50.1) % Plt Count 252 (140-400) K/mcL Neutrophils # 4.8 (1.6-8.9) K/mcL BMP 10/27/17 05:50 Sodium 130 L Potassium 4.2 Chloride 101 Carbon Dioxide 24 BUN 32 H Creatinine 1.42 H Glucose 91 Calcium 8.7 - ABG Interpretation ABG results: PT/INR, D-dimer PT 10.6 Seconds (9.4-12.1) 10/25/17 12:00 - Attending Attestation I examined this patient and my medical decision-making was reviewed with the Resident Physician on 10/27/17. I agree with the documented findings, disposition and treatment plan as described except to the extent set forth below. Mr Blood is currently admitted for possible CVA. He has been evaluated by neurology and now at baseline. Echo pending. He remains moderate to high risk due to potential for worsening clinical status. Mr Blood is up in chair. Denies pain. No CP. No fever or chills. Wants to go back to facility. Exam Alert Mild distress Mucus membranes dry Heart distant No wheeze I/P 1. Prior CVA 2. Dementia Echo pending. Will be here till Sunday in order to transfer back to ID. Further diagnoses and plan as above.
[2017-10-27] MEDS: Vitamin B Complex/Vit C/Vit E 1 EACH TABLET PO SCH (09:50)
[2017-10-27] MEDS: Thiamine (B-1) 100 MG TABLET PO SCH (09:50)
[2017-10-27] MEDS: Folic Acid 1 MG TABLET PO SCH (09:50)
[2017-10-27] MEDS: Aspirin 81 MG TAB.CHEW PO SCH (09:50)
[2017-10-27] MEDS ORDERED: Ketorolac 30 MG/ML VIAL IVP ONE (10:08)
[2017-10-27] MEDS: amLODIPine 5 MG TABLET PO SCH (10:33)
[2017-10-27] MEDS ORDERED: Metoclopramide 10 MG/2 ML VIAL IVP ONE (21:01)
[2017-10-28 06:15] LABS: Basophils % 0.6 %; Eosinophils # 0.4 K/mcL (0.0-0.6); Eosinophils % 5.1 %; Hematocrit 29.6 % (37.5-50.1); Immature Granulocytes % 0.4 % (0-4); Lymphocytes # 1.5 K/mcL (0.6-4.6); Lymphocytes % 20.9 %; Mean Corpuscular HGB Conc 33.8 g/dL (31.6-35.5); Mean Corpuscular Hemoglobin 31.8 pg (28.0-33.3); Mean Corpuscular Volume 94.3 fL (83.0-100.0); Mean Platelet Volume 9.6 fL (9.4-12.4); Monocytes # 1.3 K/mcL (0.0-1.3); Monocytes % 17.4 %; Platelet Count 253 K/mcL (140-400); Red Blood Count 3.14 M/mcL (4.19-5.50); Red Cell Distribution Width 12.1 % (11.5-14.5); Segmented Neutrophils % 55.6 %
[2017-10-28 06:53] LABS: Alanine Aminotransferase 70 Units/L (7-52); Albumin 2.7 g/dL (3.5-5.7); Albumin/Globulin Ratio 0.8 (1.1-2.2); Alkaline Phosphatase 63 Units/L (34-104); Aspartate Amino Transferase 55 Units/L (13-39); BUN/Creatinine Ratio 21 (6-26); Bilirubin,Total 0.4 mg/dL (0.3-1.0); Blood Urea Nitrogen 28 mg/dL (8-23); Calcium 8.6 mg/dL (8.6-10.3); Carbon Dioxide 23 mEq/L (23-29); Chloride 104 mEq/L (98-107); Globulin 3.3 g/dL (2.4-3.5); Glucose 82 mg/dL (70-105); Osmolality,Calculated 281 (280-300); Potassium 4.2 mEq/L (3.5-5.1); Sodium 133 mEq/L (136-145); eGFR For African Americans > 60 (> 60); eGFR For Non-African Americans 54 (> 60)
--- NOTE | 2017-10-28 08:43 | Internal Med Progress Note ---
<Basilio Patino - Last Filed: 10/28/17 15:44> Date of Encounter: 10/28/17 - Assessment and plan (1) CVA (cerebral vascular accident) Current Visit: Yes Status: Acute Qualifiers: CVA mechanism: other Qualified Code(s): I63.8 - Other cerebral infarction (2) Hypertensive emergency Current Visit: Yes Status: Resolved (3) Proteinuria Current Visit: Yes Status: Acute Qualifiers: Proteinuria type: unspecified Qualified Code(s): R80.9 - Proteinuria, unspecified (4) DVT prophylaxis Current Visit: Yes Status: Acute (5) Encephalomalacia Current Visit: Yes Status: Chronic (6) Acute metabolic encephalopathy Current Visit: Yes Status: Resolved (7) Tobacco abuse Current Visit: Yes Status: Chronic - Time Spent With Patient Total time spent is greater than 50% in coordination of care (as documented) at patient's floor/unit and/or counseling patient: - Constitutional Vitals: Temp Pulse Resp BP Pulse Ox 97.8 F 91 20 164/77 96 10/28/17 15:06 10/28/17 15:06 10/28/17 15:06 10/28/17 15:06 10/28/17 15:06 Internal Medicine: Result - Labs CBC & Chem 7: 10/28/17 05:06 10/28/17 05:06 Labs: Short CBC 10/28/17 Range/Units 05:06 WBC 7.3 (4.3-11.1) K/mcL Hgb 10.0 L (12.9-16.9) g/dL Hct 29.6 L (37.5-50.1) % Plt Count 253 (140-400) K/mcL Neutrophils # 4.0 (1.6-8.9) K/mcL BMP 10/28/17 05:06 Sodium 133 L Potassium 4.2 Chloride 104 Carbon Dioxide 23 BUN 28 H Creatinine 1.35 H Glucose 82 Calcium 8.6 Liver Function 10/28/17 Range/Units 05:06 Total Bilirubin 0.4 (0.3-1.0) mg/dL AST 55 H (13-39) Units/L ALT 70 H (7-52) Units/L Alkaline Phosphatase 63 (34-104) Units/L Albumin 2.7 L (3.5-5.7) g/dL - ABG Interpretation ABG results: PT/INR, D-dimer PT 10.6 Seconds (9.4-12.1) 10/25/17 12:00 - Impressions Impressions Echocardiogram 10/25/17 15:17 Impressions: LVEF 60-65%. Normal LV chamber size, wall thickness and function. Mild left ventricular diastolic dysfunction. Normal right ventricular structure and function. Suboptimal injection of agitated saline. No evidence of a PFO visualized. Unable to estimate RVSP due to lack of TR jet. No significant valvular dysfunction. Left Ventricular Wall Motion: Rest Echo Findings All wall segments showed normal motion. Findings: Study Quality * Technically adequate exam. ECG Findings * Normal sinus rhythm. Left Ventricle * LVEF 60-65%. * Normal LV chamber size, wall thickness and function. * Mild left ventricular diastolic dysfunction. Right Ventricle * Normal right ventricular structure and function. Left Atrium * Normal left atrial size. Right Atrium * Normal right atrial size. Interatrial Septum * Suboptimal injection of agitated saline. No evidence of a PFO visualized. Aortic Valve * Aortic valve not well visualized. * No aortic regurgitation. * No aortic stenosis. Mitral Valve * Normal mitral valve structure and function. * No mitral regurgitation. * No mitral stenosis. Tricuspid Valve * Normal tricuspid valve structure and function. * No tricuspid regurgitation. * Unable to estimate RVSP due to lack of TR jet. Pulmonic Valve * Pulmonic valve not well visualized. Aorta * Normally sized aortic root. Pericardium * The pericardium appears normal. IVC * Normal IVC dimensions and inspiratory collapse. Pulmonary Artery * Pulmonary artery not well visualized. Consult Discharge Plan - Plan Referrals: Jer Tai [Primary Care Provider] - - Attending Attestation I examined this patient and my medical decision-making was reviewed with the Resident Physician on 10/28/17. I agree with the documented findings, disposition and treatment plan as described except to the extent set forth below. Mr Blood has been admitted with possible CVA. His work up is negative. He remains moderate risk at this time. Mr Blood is frustrated. He wants to leave. No fever or chills. No cough. Exam alert Comfortable Mucus membranes dry Heart distant Lungs clear I/P 1. Prior CVA Further diagnoses and plan as above. Anticip[facility]. <Dianne Nunez N - Last Filed: 10/28/17 16:55> Date of Encounter: 10/28/17 Time of Encounter: 08:43 - Assessment and plan (1) Hypertensive emergency Current Visit: Yes Status: Resolved Assessment and plan: Patient's BP was 199/104 at time of presentation to the ED. His most recent BP was improved, at 162/86. He is currently on amlodipine 5mg, which we will continue. He has a history of alcohol abuse, which is likely contributing to his elevated BP. Will continue to monitor and manage as appropriate. 10/27 - Nursing staff reported high overnight BP, with measurements of 205/96 and 202/115. As we have not yet been able to reconcile his medications, will start amlodipine 10mg for blood pressure management. Will continue hydralazine for systolic BP >170mmHg and diastolic BP >100mmHg. 10/28 - Patient continues to have high BP. Added losartan 100mg daily. Hydralazine now to be given if systolic BP >160mmHg. Will consider addition of chlorthalidone if this persists. Expect that he will be discharged [facility] [place] sometime tomorrow. (2) Headache Current Visit: Yes Status: Acute Assessment and plan: Patient complains of frequent headaches, saying that if he wasn't in the hospital, he would be "popping aspirin left and right". He did receive a dose of tramadol overnight; however, with his elevated AST and ALT, added toradol 15mg IVP Q6H PRN. Suspect that some of his headache may be secondary to hypertension. (3) CVA (cerebral vascular accident) Current Visit: Yes Status: Acute Assessment and plan: Patient has a history of CVA. Head CT performed last night showed no intracranial hemorrhage and no definite acute infarct. Neurology evaluated the patient upon presentation to the ED, and per their reevaluation today, the patient is back to his baseline. He does demonstrate some minimal left-sided weakness and facial droop, but otherwise appears to be grossly intact neurologically. He is unable to tell me the day of the week or month of the year , but is oriented to self and location. Suspect that his symptoms are due to hypertensive urgency and chronic ischemic changes. Will continue atorvastatin 40mg and aspirin 81mg. Plan to continue monitoring this patient for signs of worsening neurologic function. 10/27 - Will continue to monitor patient for signs of CVA. 10/28 - Patient has had no recurrent weakness or tingling. Will continue to assess clinically. Echocardiogram showed LVEF 60-65% and mild left ventricle diastolic dysfunction. Qualifiers: CVA mechanism: other Qualified Code(s): I63.8 - Other cerebral infarction (4) Encephalomalacia Current Visit: Yes Status: Chronic Assessment and plan: Head CT performed on 10/25/2017 demonstrated multiple chronic findings, including the following: * Subacute to chronic appearing right frontal lobe infarct * Chronic left parietal lobe infarct * Extensive periventricular small vessel ischemic changes * Evidence of intracranial endovascular repair (5) Alcohol abuse Current Visit: Yes Status: Inactive Assessment and plan: Patient has a long history of alcohol abuse. He is currently on CIWA protocol and is receiving thiamine and folic acid supplementation, as well as general B- vitamin supplementation. Will continue current management and consider nutrition consult for diet education prior to discharge. 10/28 - Continue CIWA protocol. (6) Proteinuria Current Visit: Yes Status: Acute Assessment and plan: Patient had proteinuria, with protein >=300. Urine protein:creatinine ratio studies have been ordered and are in progress. Plan to consult nephrology if urine studies show abnormalities. 10/27 - Urine studies are still pending. Will assess those as results become available. 10/28 - Reordered urine studies, as the sample for the original study has still not been collected. Will assess that once resulted. Qualifiers: Proteinuria type: unspecified Qualified Code(s): R80.9 - Proteinuria, unspecified (7) Tobacco abuse Current Visit: Yes Status: Chronic Assessment and plan: Nicotine patches PRN. Encouraged patient to consider implementing a long-term cessation strategy upon discharge. (8) DVT prophylaxis Current Visit: Yes Status: Acute Assessment and plan: SCDs - Time Spent With Patient Total time spent is greater than 50% in coordination of care (as documented) at patient's floor/unit and/or counseling patient: - Subjective Interval history: Mr. Blood is a 62-year old male who was [place] [facility] [place] due to new-onset left-sided facial droop and weakness. He has a history of CVA and alcohol abuse, reportedly with some dementia. He was evaluated by neurology last night, and upon repeat evaluation today, has apparently returned to his baseline strength. Upon exam today, he appears slightly confused, and stating that he is in the hospital because "I had a stroke, I guess". He complains of ongoing headache over the right side of the top of his head, which he rates 5/ 10 in intensity. He denies changes in vision. He reports some nausea associated with initial symptoms, but states that it is now resolved. He is not oriented to time, stating that today is Sunday and the current month is April. He expresses nonspecific concern for his mother, as she is "getting on in years", but denies any specific concerns. 10/27 - Patient complains of persistent headache, which he rates as 8/10. He denies any other complaints at this time. He states the current day to be Sunday , and reports the month to be April. Nursing staff reports trouble reconciling his medications, and his home blood pressure regimen is currently unknown. 10/28 - Patient expresses frustration regarding his being hospitalized and having to ask for things like coffee. He complains of continued headache, saying that "no one will give me aspirin". He denies any recurrence of left- sided tingling/weakness, and expresses that he wants to go home. He denies any new concerns at this time. - Constitutional Vitals: Temp Pulse Resp BP Pulse Ox 98.0 F 74 18 182/91 98 10/28/17 06:41 10/28/17 06:41 10/28/17 06:41 10/28/17 06:41 10/28/17 04:00 Exam: * General: Patient is awake and oriented to person and place. He answers questions appropriately. He appears to frustrated about being in the hospital. * HEENT: Atraumatic and normocephalic. * Cardiovascular: Regular rate and rhythm. No murmurs, rubs, or gallops. * Respiratory: Lungs CTA bilaterally. No accessory muscle use. * Gastrointestinal: Active bowel sounds present. Abdomen soft and nontender. * Extremities: No clubbing, cyanosis, or edema present. * Neurologic: Patient moves all extremities spontaneously. No apparent focal deficits. Internal Medicine: Result - Labs CBC & Chem 7: 10/28/17 05:06 10/28/17 05:06 Labs: Short CBC 10/28/17 Range/Units 05:06 WBC 7.3 (4.3-11.1) K/mcL Hgb 10.0 L (12.9-16.9) g/dL Hct 29.6 L (37.5-50.1) % Plt Count 253 (140-400) K/mcL Neutrophils # 4.0 (1.6-8.9) K/mcL BMP 10/28/17 05:06 Sodium 133 L Potassium 4.2 Chloride 104 Carbon Dioxide 23 BUN 28 H Creatinine 1.35 H Glucose 82 Calcium 8.6 Liver Function 10/28/17 Range/Units 05:06 Total Bilirubin 0.4 (0.3-1.0) mg/dL AST 55 H (13-39) Units/L ALT 70 H (7-52) Units/L Alkaline Phosphatase 63 (34-104) Units/L Albumin 2.7 L (3.5-5.7) g/dL - ABG Interpretation ABG results: PT/INR, D-dimer PT 10.6 Seconds (9.4-12.1) 10/25/17 12:00 - Impressions Impressions Echocardiogram 10/25/17 15:17 Impressions: LVEF 60-65%. Normal LV chamber size, wall thickness and function. Mild left ventricular diastolic dysfunction. Normal right ventricular structure and function. Suboptimal injection of agitated saline. No evidence of a PFO visualized. Unable to estimate RVSP due to lack of TR jet. No significant valvular dysfunction. Left Ventricular Wall Motion: Rest Echo Findings All wall segments showed normal motion. Findings: Study Quality * Technically adequate exam. ECG Findings * Normal sinus rhythm. Left Ventricle * LVEF 60-65%. * Normal LV chamber size, wall thickness and function. * Mild left ventricular diastolic dysfunction. Right Ventricle * Normal right ventricular structure and function. Left Atrium * Normal left atrial size. Right Atrium * Normal right atrial size. Interatrial Septum * Suboptimal injection of agitated saline. No evidence of a PFO visualized. Aortic Valve * Aortic valve not well visualized. * No aortic regurgitation. * No aortic stenosis. Mitral Valve * Normal mitral valve structure and function. * No mitral regurgitation. * No mitral stenosis. Tricuspid Valve * Normal tricuspid valve structure and function. * No tricuspid regurgitation. * Unable to estimate RVSP due to lack of TR jet. Pulmonic Valve * Pulmonic valve not well visualized. Aorta * Normally sized aortic root. Pericardium * The pericardium appears normal. IVC * Normal IVC dimensions and inspiratory collapse. Pulmonary Artery * Pulmonary artery not well visualized.
[2017-10-28] MEDS ORDERED: Ketorolac 15 MG/ML VIAL IVP PRN (09:49)
[2017-10-28] MEDS: Thiamine (B-1) 100 MG TABLET PO SCH (12:19)
[2017-10-28] MEDS: Aspirin 81 MG TAB.CHEW PO SCH (12:19)
[2017-10-28] MEDS: Folic Acid 1 MG TABLET PO SCH (12:19)
[2017-10-28] MEDS: Vitamin B Complex/Vit C/Vit E 1 EACH TABLET PO SCH (12:20)
[2017-10-28] MEDS: amLODIPine 5 MG TABLET PO SCH (12:20)
[2017-10-28] MEDS: *HR* LORazepam 2 MG/ML VIAL IVP PRN (18:25)
[2017-10-29 04:17] LABS: Hematocrit 31.3 % (37.5-50.1); Hemoglobin 10.7 g/dL (12.9-16.9); Immature Granulocytes % 0.3 % (0-4); Lymphocytes % 26.2 %; Mean Corpuscular HGB Conc 34.2 g/dL (31.6-35.5); Mean Corpuscular Hemoglobin 32.7 pg (28.0-33.3); Mean Corpuscular Volume 95.7 fL (83.0-100.0); Mean Platelet Volume 9.6 fL (9.4-12.4); Platelet Count 240 K/mcL (140-400); Red Blood Count 3.27 M/mcL (4.19-5.50); Red Cell Distribution Width 11.9 % (11.5-14.5); Segmented Neutrophils % 51.4 %
[2017-10-29 04:18] LABS: Basophils % 0.4 %; Eosinophils # 0.4 K/mcL (0.0-0.6); Eosinophils % 6.1 %; Lymphocytes # 1.9 K/mcL (0.6-4.6); Monocytes # 1.1 K/mcL (0.0-1.3); Monocytes % 15.6 %; Neutrophils # 3.7 K/mcL (1.6-8.9)
[2017-10-29 04:33] LABS: Albumin 2.8 g/dL (3.5-5.7); Albumin/Globulin Ratio 0.8 (1.1-2.2); Bilirubin,Total 0.4 mg/dL (0.3-1.0); Calcium 8.3 mg/dL (8.6-10.3); Globulin 3.3 g/dL (2.4-3.5); Potassium 4.5 mEq/L (3.5-5.1); Total Protein 6.1 g/dL (6.4-8.9)
[2017-10-29] MEDS: Aspirin 81 MG TAB.CHEW PO SCH (08:39)
[2017-10-29] MEDS: Folic Acid 1 MG TABLET PO SCH (08:40)
[2017-10-29] MEDS: amLODIPine 5 MG TABLET PO SCH (08:40)
[2017-10-29] MEDS: Vitamin B Complex/Vit C/Vit E 1 EACH TABLET PO SCH (08:41)
[2017-10-29] MEDS: Thiamine (B-1) 100 MG TABLET PO SCH (08:41)
[2017-10-29] MEDS ORDERED: 0.9 % Sodium Chloride 500 ML IVC ONE (08:55)
--- NOTE | 2017-10-29 09:12 | Discharge Summary ---
<Dianne Nunez N - Last Filed: 10/30/17 10:13> - NOTES TO OUTPATIENT PROVIDER Notes to Outpatient Provider: Patient's medication list was unavailble during most of this admission, so some of his prior medications are not currently being given. Please see med rec within discharge summary. Of note, he was started on losartan 100mg during this admission, and is not taking lisinopril. Orders not resulted at time of discharge: Pending orders 10/28/17 16:57 Urine Protein Creat Ratio [place] [[facility]] Routine 10/29/17 11:00 BMP [Basic Metabolic Panel] Routine Date of Encounter: 10/30/17 Time of Encounter: 09:11 - Discharge Diagnosis (1) Hypertensive emergency Priority: Primary Status: Resolved (2) CVA (cerebral vascular accident) Priority: Secondary Status: Acute Qualifiers: CVA mechanism: other Qualified Code(s): I63.8 - Other cerebral infarction (3) Encephalomalacia Priority: Secondary Status: Chronic (4) Proteinuria Priority: Secondary Status: Acute Qualifiers: Proteinuria type: unspecified Qualified Code(s): R80.9 - Proteinuria, unspecified (5) Tobacco abuse Priority: Secondary Status: Chronic (6) Acute metabolic encephalopathy Priority: Secondary Status: Resolved (7) Headache Priority: Secondary Status: Acute Qualifiers: Headache type: unspecified Headache chronicity pattern: acute headache Intractability: not intractable Qualified Code(s): R51 - Headache Hospital course: Mr. Blood is a 62 year old male who presented with acute onset left-sided weakness and facial weakness. He was initially worked up for CVA; however, imaging studies were inconclusive and the patient's symptoms resolved 24-48 hours after admission. Subsequent neurologic exams showed no focal deficits. He continued to have hypertensive urgency, with BP around 180-200 systolic and 90- 105 diastolic. He did complain of headaches early during this admission; however , this resolved and patient denied any discomfort prior to discharge. His medications were reconciled on 10/29, and the patient's regular medications were initiated, including keppra and tamsulosin. Patient demonstrated some increasing confusion and agitation on the day before discharge, with quick improvement upon administration of haldol. Patient had improved BP on the day of discharge, and the patient denied any complaints. He had some hyponatremia during this admission, which improved with normal saline bolus and addition of sodium chloride tablets. - Time Spent with Patient Total time spent providing and/or coordinating discharge services: - Discharge Medications Prescriptions: Losartan [Cozaar] 100 mg PO DAILY #30 tablet Home Medications: Aspirin 325 mg PO DAILY PRN 10/25/17 [History] Atorvastatin [Lipitor] 40 mg PO HS tablet 10/29/17 [Rx] Folic Acid 1 mg PO DAILY tablet 10/29/17 [Rx] Propranolol [Inderal] 40 mg PO BID tablet 10/29/17 [Rx] Thiamine (B-1) [Vitamin B-1] 100 mg PO DAILY tablet 10/29/17 [Rx] Aspirin 325 mg PO DAILY PRN tablet 10/30/17 [Rx] Haloperidol Lactate [Haldol] 2.5 mg IM Q6HR PRN vial 10/30/17 [Rx] Haloperidol [Haldol] 2.5 mg PO Q6H PRN tablet 10/30/17 [Rx] Losartan [Cozaar] 100 mg PO DAILY #30 tablet 10/30/17 [Rx] Sodium Chloride [Sodium Chloride Tab] 1 gm PO BID tablet 10/30/17 [Rx] Tamsulosin [Flomax] 0.4 mg PO DAILY capsule 10/30/17 [Rx] levETIRAcetam [Keppra] 1,000 mg PO Q12HR tablet 10/30/17 [Rx] Allergies/Adverse Reactions: 3 Allergy/AdvReac Type Severity Reaction Status Date / Time No Known Allergies Allergy Verified 10/25/17 13:29 Date of admission: 10/25/17 13:27 Primary care physician: Jer Tai Consults: 10/25/17 15:38 Consult to [facility] Department Supervisor [CONS] Routine Reason for Consult: patient for the [place] postive hep c, heavy drinker, smoker demention 10/25/17 16:11 Consult to [place] [facility] Department Supervisor [CONS] Routine Reason for Consult: alcohol abuse Discharging clinician: Dianne Nunez Anticipated date of discharge: 10/29/17 - Constitutional Vitals: Temp Pulse Resp BP Pulse Ox 97.6 F 80 16 169/92 97 10/29/17 06:43 10/29/17 06:43 10/29/17 06:43 10/29/17 06:43 10/29/17 06:43 Exam: * General: Patient is awake and oriented to person. He is calm and cooperative, and is responding appropriately to questions. * HEENT: Atraumatic and normocephalic. * Cardiovascular: Regular rate and rhythm. No murmurs, rubs, or gallops. * Respiratory: Lungs CTA bilaterally. No accessory muscle use. * Gastrointestinal: Abdomen soft and nontender. * Extremities: No clubbing, cyanosis, or edema present. * Neurologic: Patient moves all extremities spontaneously. No apparent focal deficits. - Patient Status Disposition: Transfer [facility] Condition: Fair Functional capacity at discharge: independent ambulation Overall status at discharge: patient is progressing back to baseline - Discharge Instructions Instructions: Losartan (By mouth), Ischemic Stroke (DC), Ischemic Stroke (GEN) Follow Up With: Jer Tai [Primary Care Provider] - Additional Instructions: Continue home medications, but DO NOT take lisinopril. Continue losartan 100mg daily. Follow up with your PCP in 3-5 days, and discuss if there is need for further workup for proteinuria. Return to the emergency department if symptoms recur, or if new symptoms arise. - Diet and Activity Activity: resume usual activities as tolerated Diet: regular diet - VTE Documentation of Mechanical Device: Intermittent pneumatic compression device <Genny Payne - Last Filed: 10/30/17 18:08> Orders not resulted at time of discharge: Pending orders 10/28/17 16:57 Urine Protein Creat Ratio [place] [[facility]] Routine Date of Encounter: 10/30/17 - Discharge Diagnosis (1) CVA (cerebral vascular accident) Status: Acute Qualifiers: CVA mechanism: other Qualified Code(s): I63.8 - Other cerebral infarction (2) Encephalomalacia Status: Chronic (3) Hypertensive emergency Status: Resolved (4) Proteinuria Status: Acute Qualifiers: Proteinuria type: unspecified Qualified Code(s): R80.9 - Proteinuria, unspecified (5) Acute metabolic encephalopathy Status: Resolved (6) Tobacco abuse Status: Chronic (7) Headache Status: Acute Qualifiers: Headache type: unspecified Headache chronicity pattern: acute headache Intractability: not intractable Qualified Code(s): R51 - Headache Hospital course: Mr. Blood is a 62 year old male - Time Spent with Patient Total time spent providing and/or coordinating discharge services: Date of admission: 10/25/17 13:27 Primary care physician: eJr Zaire Consults: 10/25/17 15:38 Consult to [place] Department Supervisor [CONS] Routine Reason for Consult: patient for the [place] postive hep c, heavy drinker, smoker demention 10/25/17 16:11 Consult to [place] Department Supervisor [CONS] Routine Reason for SW Consult: alcohol abuse - Constitutional Vitals: Temp Pulse Resp BP Pulse Ox 97.8 F 68 16 144/75 98 10/30/17 08:00 10/30/17 08:00 10/30/17 08:00 10/30/17 08:00 10/30/17 08:00 - Attending Attestation I examined this patient and my medical decision-making was reviewed with the Resident Physician Dr. Nunez. I agree with the documented findings, disposition and treatment plan as described except to the extent set forth below. Mr. Blood is a 62 year old male who presented with acute onset left-sided weakness and facial weakness. He was initially worked up for CVA; however, imaging studies were inconclusive and the patient's symptoms resolved 24-48 hours after admission. Subsequent neurologic exams showed no focal deficits. He did have some agitation y/d which might be due to his underline psych / behavioral problems. Today he is alert, awake and O x 3. So will d/c him back to [facility] in stable condition today. Chest: Diminished BS b/l, no crackles / rales Neuro : benign
[2017-10-29] MEDS: *HR* LORazepam 2 MG/ML VIAL IVP PRN (12:17)
--- NOTE | 2017-10-29 14:54 | Physician Discharge Referral ---
ExtendedCare Referral Info Transfer To: [place] Provider in Charge: Dr. Basilio Patino Provider in Charge after Transfer: PCP Institutional Level of Care: Skilled - Diagnosis (1) Hypertensive emergency Priority: Primary Status: Resolved (2) Headache Priority: Secondary Status: Acute (3) CVA (cerebral vascular accident) Priority: Secondary Status: Acute (4) Encephalomalacia Priority: Secondary Status: Chronic (5) Proteinuria Priority: Secondary Status: Acute (6) Tobacco abuse Priority: Secondary Status: Chronic Prognosis: Fair - Transfer Medications Prescriptions: Losartan [Cozaar] 100 mg PO DAILY #30 tablet Home Medications: Aspirin 325 mg PO DAILY PRN 10/25/17 [History] Atorvastatin [Lipitor] 40 mg PO HS tablet 10/29/17 [Rx] Folic Acid 1 mg PO DAILY tablet 10/29/17 [Rx] Losartan [Cozaar] 100 mg PO DAILY #30 tablet 10/29/17 [Rx] Propranolol [Inderal] 40 mg PO BID tablet 10/29/17 [Rx] Thiamine (B-1) [Vitamin B-1] 100 mg PO DAILY tablet 10/29/17 [Rx] Allergies/Adverse Reactions: 3 Allergy/AdvReac Type Severity Reaction Status Date / Time No Known Allergies Allergy Verified 10/25/17 13:29 - Respiratory Orders None Smoking Cessation: Smoking cessation has been advised. For more information, call the [place] Tobacco Quit Line at 5-547-KXVGNOW. - Ancillary Orders May use pressure relief devices daily prn - Advance Directives Code Status: Full Code - Mobility Orders Ambulate - Rehabiliation Orders Rehab Potential: Fair Rehab Orders: ROM Exercises, Evaluation for Physical Therapy, Evaluation for Occupational Therapy, Evaluation for Speech Therapy - Treatments Skin tear care topically daily PRN per policy - Diet Orders No Added Salt (HÉCTOR) CERTIFICATION: I certify that the transfer of the above named patient to an Extended Care Facility is necessary for the continuing treatment of the diagnosis listed. The above information is true and accurate reflection of patient's current condition. Confidential - Redisclosure prohibited without a patient's written consent.
[2017-10-29] MEDS ORDERED: Haloperidol Lactate 5 MG/ML VIAL IM ONE (15:06)
[2017-10-29 15:15] LABS: Calcium 8.8 mg/dL (8.6-10.3); Potassium 4.6 mEq/L (3.5-5.1)
--- NOTE | 2017-10-29 16:39 | Internal Med Progress Note ---
<Basilio Patino - Last Filed: 10/29/17 17:33> Date of Encounter: 10/29/17 - Assessment and plan (1) CVA (cerebral vascular accident) Current Visit: Yes Status: Acute Qualifiers: CVA mechanism: other Qualified Code(s): I63.8 - Other cerebral infarction (2) Encephalomalacia Current Visit: Yes Status: Chronic (3) Hypertensive emergency Current Visit: Yes Status: Resolved (4) Proteinuria Current Visit: Yes Status: Acute Qualifiers: Proteinuria type: unspecified Qualified Code(s): R80.9 - Proteinuria, unspecified (5) Tobacco abuse Current Visit: Yes Status: Chronic (6) Headache Current Visit: Yes Status: Acute (7) Acute metabolic encephalopathy Current Visit: Yes Status: Resolved (8) Hypertension Current Visit: Yes Status: Chronic Qualifiers: Hypertension type: essential hypertension Qualified Code(s): I10 - Essential (primary) hypertension - Time Spent With Patient Total time spent is greater than 50% in coordination of care (as documented) at patient's floor/unit and/or counseling patient: - Constitutional Vitals: Temp Pulse Resp BP Pulse Ox 97.8 F 76 20 165/76 97 10/29/17 15:15 10/29/17 15:56 10/29/17 15:56 10/29/17 15:56 10/29/17 15:15 Internal Medicine: Result - Labs CBC & Chem 7: 10/29/17 03:42 10/29/17 14:10 Labs: Short CBC 10/29/17 Range/Units 03:42 WBC 7.3 (4.3-11.1) K/mcL Hgb 10.7 L (12.9-16.9) g/dL Hct 31.3 L (37.5-50.1) % Plt Count 240 (140-400) K/mcL Neutrophils # 3.7 (1.6-8.9) K/mcL BMP 10/29/17 10/29/17 03:42 14:10 Sodium 128 L 131 L Potassium 4.5 4.6 Chloride 103 105 Carbon Dioxide 18 L 20 L BUN 35 H 30 H Creatinine 1.50 H 1.53 H Glucose 90 106 H Calcium 8.3 L 8.8 Liver Function 10/29/17 Range/Units 03:42 Total Bilirubin 0.4 (0.3-1.0) mg/dL AST 55 H (13-39) Units/L ALT 67 H (7-52) Units/L Alkaline Phosphatase 61 (34-104) Units/L Albumin 2.8 L (3.5-5.7) g/dL - ABG Interpretation ABG results: PT/INR, D-dimer PT 10.6 Seconds (9.4-12.1) 10/25/17 12:00 Consult Discharge Plan - Plan Additional Instructions: Continue home medications, but DO NOT take lisinopril. Continue losartan 100mg daily. Follow up with your PCP in 3-5 days, and discuss if there is need for further workup for proteinuria. Return to the emergency department if symptoms recur, or if new symptoms arise. Referrals: Jer Tai [Primary Care Provider] - Prescriptions: Losartan [Cozaar] 100 mg PO DAILY #30 tablet - Attending Attestation I examined this patient and my medical decision-making was reviewed with the Resident Physician on 10/29/17. I agree with the documented findings, disposition and treatment plan as described except to the extent set forth below. Mr Blood is currently admitted for concern for new CVA. He remains moderate to high risk due to potential for worsening clinical status. Mr Blood has been agitated today. No fever or chills. Peeing on floor. Sitter added. Sodium was low and small amount of fluids given with improvement. Echo results returned with no acute issue. Initially was to go back to [facility] today but they did want a recheck sodium. It is now too late for them to get him. Exam agitated. Confused Mucus membranes dry Not tachy No wheeze I/P 1. Agitation - med list from [facility] found. Meds restarted 2. Chronic hyponatremia Hopefully will be able to return to [facility] tomorrow. Further diagnoses and plan as above. <Dianne Nunez N - Last Filed: 10/29/17 19:15> Date of Encounter: 10/29/17 Time of Encounter: 16:39 - Assessment and plan (1) Hypertensive emergency Current Visit: Yes Status: Resolved Assessment and plan: Patient's BP was 199/104 at time of presentation to the ED. His most recent BP was improved, at 162/86. He is currently on amlodipine 5mg, which we will continue. He has a history of alcohol abuse, which is likely contributing to his elevated BP. Will continue to monitor and manage as appropriate. 10/27 - Nursing staff reported high overnight BP, with measurements of 205/96 and 202/115. As we have not yet been able to reconcile his medications, will start amlodipine 10mg for blood pressure management. Will continue hydralazine for systolic BP >170mmHg and diastolic BP >100mmHg. 10/28 - Patient continues to have high BP. Added losartan 100mg daily. Hydralazine now to be given if systolic BP >160mmHg. Will consider addition of chlorthalidone if this persists. Expect that he will be discharged back to the [facility] sometime tomorrow. 10/29 - Patient has continued to have [id number] BP. His home medication list was obtained today, and his medication regimen was altered accordingly. His current regimen includes losartan 100mg and propranolol 40mg BID. His home regimen includes spironolactone 75mg and furosemide 40mg daily; however, we will hold those medications due to his recent hyponatremia. Will continue hydralazine 10mg IVP Q6H PRN for SBP>160/DBP>100. The patient's medication list also includes lisinopril 5mg; however, as this list was not available to us sooner, he was started on valsartan. Plan to discharge the patient back to the [facility] tomorrow and will continue the losartan, with instructions to follow up with his PCP regarding which medication to use long- term. (2) Agitation Current Visit: Yes Status: Acute Assessment and plan: Patient's regular medication list includes haldol 2.5mg Q6H PRN, which we will continue here. He has also had an order placed for a sitter to maximize patient safety. Plan for discharge back to the [facility] tomorrow, which will likely improve his agitation, as he will be back in a familiar environment. (3) Headache Current Visit: Yes Status: Acute Assessment and plan: Patient complains of frequent headaches, saying that if he wasn't in the hospital, he would be "popping aspirin left and right". He did receive a dose of tramadol overnight; however, with his elevated AST and ALT, added toradol 15mg IVP Q6H PRN. Suspect that some of his headache may be secondary to hypertension. 10/29 - Patient reports no lingering headache today. Will continue to monitor with analgesics available if needed. (4) CVA (cerebral vascular accident) Current Visit: Yes Status: Acute Assessment and plan: Patient has a history of CVA. Head CT performed last night showed no intracranial hemorrhage and no definite acute infarct. Neurology evaluated the patient upon presentation to the ED, and per their reevaluation today, the patient is back to his baseline. He does demonstrate some minimal left-sided weakness and facial droop, but otherwise appears to be grossly intact neurologically. He is unable to tell me the day of the week or month of the year , but is oriented to self and location. Suspect that his symptoms are due to hypertensive urgency and chronic ischemic changes. Will continue atorvastatin 40mg and aspirin 81mg. Plan to continue monitoring this patient for signs of worsening neurologic function. 10/27 - Will continue to monitor patient for signs of CVA. 10/28 - Patient has had no recurrent weakness or tingling. Will continue to assess clinically. Echocardiogram showed LVEF 60-65% and mild left ventricle diastolic dysfunction. 10/29 - Patient denies recurrent weakness, numbness, or tingling. Will continue to monitor. Qualifiers: CVA mechanism: other Qualified Code(s): I63.8 - Other cerebral infarction (5) Encephalomalacia Current Visit: Yes Status: Chronic Assessment and plan: Head CT performed on 10/25/2017 demonstrated multiple chronic findings, including the following: * Subacute to chronic appearing right frontal lobe infarct * Chronic left parietal lobe infarct * Extensive periventricular small vessel ischemic changes * Evidence of intracranial endovascular repair (6) Proteinuria Current Visit: Yes Status: Acute Assessment and plan: Patient had proteinuria, with protein >=300. Urine protein:creatinine ratio studies have been ordered and are in progress. Plan to consult nephrology if urine studies show abnormalities. 10/27 - Urine studies are still pending. Will assess those as results become available. 10/28 - Reordered urine studies, as the sample for the original study has still not been collected. Will assess that once resulted. 10/29 - Urine studies still pending. Patient takes flomax 0.4mg daily at home, which was added to his medication regimen today. Patient has reportedly urinated on his floor several times today. Bladder scan has been ordered to assess for signs of urinary retention. Recommend outpatient evaluation and followup regarding proteinuria that was present on admission. Qualifiers: Proteinuria type: unspecified Qualified Code(s): R80.9 - Proteinuria, unspecified (7) Tobacco abuse Current Visit: Yes Status: Chronic Assessment and plan: Nicotine patches PRN. Encouraged patient to consider implementing a long-term cessation strategy upon discharge. - Time Spent With Patient Total time spent is greater than 50% in coordination of care (as documented) at patient's floor/unit and/or counseling patient: - Subjective Interval history: Mr. Blood is a 62-year old male who was transferred [facility] the ED from the [facility] due to new-onset left-sided facial droop and weakness. He has a history of CVA and alcohol abuse, reportedly with some dementia. He was evaluated by neurology last night, and upon repeat evaluation today, has apparently returned to his baseline strength. Upon exam today, he appears slightly confused, and stating that he is in the hospital because "I had a stroke, I guess". He complains of ongoing headache over the right side of the top of his head, which he rates 5/ 10 in intensity. He denies changes in vision. He reports some nausea associated with initial symptoms, but states that it is now resolved. He is not oriented to time, stating that today is Sunday and the current month is April. He expresses nonspecific concern for his mother, as she is "getting on in years", but denies any specific concerns. 10/27 - Patient complains of persistent headache, which he rates as 8/10. He denies any other complaints at this time. He states the current day to be Sunday , and reports the month to be April. Nursing staff reports trouble reconciling his medications, and his home blood pressure regimen is currently unknown. 10/28 - Patient expresses frustration regarding his being hospitalized and having to ask for things like coffee. He complains of continued headache, saying that "no one will give me aspirin". He denies any recurrence of left- sided tingling/weakness, and expresses that he wants to go home. He denies any new concerns at this time. 10/29 - Mr. Blood appears to be increasingly frustrated due to his continued hospital stay. He expresses that he would like to leave. He became agitated during the afternoon, with confusion and disorientation. Per nursing staff, he repeatedly got out of bed and tried to move around the room. They report that he was insistent that he needed to go to the bar or to the kitchen, and appeared unaware that he was in the hospital. Upon questioning, he stated that he was in [place] when asked where he was. Upon more specific questioning, he replied that he was at "[address]". He also stated that the month was April and that the day of the week was "20". He was given 2.5mg haldol IM, with some improvement in agitation. He was also ordered a sitter to enhance his safety. - Constitutional Vitals: Temp Pulse Resp BP Pulse Ox 97.8 F 76 20 165/76 97 10/29/17 15:15 10/29/17 15:56 10/29/17 15:56 10/29/17 15:56 10/29/17 15:15 Exam: * General: Patient is awake and oriented to person. He appears agitated and is borderline uncooperative to responding to questions. * HEENT: Atraumatic and normocephalic. * Cardiovascular: Regular rate and rhythm. No murmurs, rubs, or gallops. * Respiratory: Lungs CTA bilaterally. No accessory muscle use. * Gastrointestinal: Abdomen soft and nontender. * Extremities: No clubbing, cyanosis, or edema present. * Neurologic: Patient moves all extremities spontaneously. No apparent focal deficits. Internal Medicine: Result - Labs CBC & Chem 7: 10/29/17 03:42 10/29/17 14:10 Labs: Short CBC 10/29/17 Range/Units 03:42 WBC 7.3 (4.3-11.1) K/mcL Hgb 10.7 L (12.9-16.9) g/dL Hct 31.3 L (37.5-50.1) % Plt Count 240 (140-400) K/mcL Neutrophils # 3.7 (1.6-8.9) K/mcL BMP 10/29/17 10/29/17 03:42 14:10 Sodium 128 L 131 L Potassium 4.5 4.6 Chloride 103 105 Carbon Dioxide 18 L 20 L BUN 35 H 30 H Creatinine 1.50 H 1.53 H Glucose 90 106 H Calcium 8.3 L 8.8 Liver Function 10/29/17 Range/Units 03:42 Total Bilirubin 0.4 (0.3-1.0) mg/dL AST 55 H (13-39) Units/L ALT 67 H (7-52) Units/L Alkaline Phosphatase 61 (34-104) Units/L Albumin 2.8 L (3.5-5.7) g/dL - ABG Interpretation ABG results: PT/INR, D-dimer PT 10.6 Seconds (9.4-12.1) 10/25/17 12:00 - VTE Documentation of Mechanical Device: Intermittent pneumatic compression device
[2017-10-29] MEDS ORDERED: Haloperidol Lactate 5 MG/ML VIAL IM PRN (16:44)
[2017-10-29] MEDS ORDERED: Aspirin 325 MG TABLET PO PRN (16:50)
[2017-10-29] MEDS: levETIRAcetam 250 MG TABLET PO SCH (17:51)
[2017-10-30] MEDS: levETIRAcetam 250 MG TABLET PO SCH (06:08)
[2017-10-30 06:10] LABS: Calcium 8.7 mg/dL (8.6-10.3); Potassium 4.5 mEq/L (3.5-5.1)
[2017-10-30 08:03] VITALS: BP 144/75
[2017-10-30] MEDS: Folic Acid 1 MG TABLET PO SCH (09:35)
[2017-10-30] MEDS: Vitamin B Complex/Vit C/Vit E 1 EACH TABLET PO SCH (09:35)
[2017-10-30] MEDS: Aspirin 81 MG TAB.CHEW PO SCH (09:36)
[2017-10-30] MEDS: Thiamine (B-1) 100 MG TABLET PO SCH (09:36)
== END 2017-10-30 11:37 | DRG 64 ==
LOC: EMEROO 11:21 → SUATTDRO 13:27 → 2NENU 13:27
PROVIDERS: ADMIT Student in an Organized Health Care Education/Training Program; ATTEND Family Medicine